=== PATIENT | female | born 1985 | race African-American/Black ===

== ENCOUNTER 2019-07-19 14:34 | Emergency (ER) | payer OTHER ==
[~2019-07-19] VITALS: Ht 162.6 cm; Wt 49.9 kg
[2019-07-19 15:05] LABS: URINE BILIRUBIN NEGATIVE (Negative); URINE BLOOD 3+ (Negative); URINE CLARITY CLOUDY; URINE COLOR RED; URINE GLUCOSE-RANDOM* NEGATIVE (Negative); URINE KETONES 1+ (Negative); URINE PROTEIN (DIPSTICK) 3+ (Negative)
[2019-07-19 15:08] LABS: URINE LEUKOCYTES-REFLEX 2+ (Negative); URINE NITRITE-REFLEX POSITIVE (Negative)
[2019-07-19 15:16] LABS: BACTERIA-REFLEX 1-9 Few /HPF (None Seen); CASTS None Seen /LPF (None Seen); CRYSTALS None Seen /LPF (None Seen); SQUAMOUS 0-3 Few /LPF (0-3); URINE RBC >20 Many /HPF (0-2); URINE WBC-REFLEX 0-5 Rare /HPF (0-5)
[2019-07-19] MEDS ORDERED: PHENAZOPYRIDIN200 M2 PO (15:39)
[2019-07-19] MEDS ORDERED: MACROBID 100 M100 MG PO (15:39)
[2019-07-19 15:43] VITALS: BP 121/74
== END 2019-07-19 15:43 | disposition home or self-care (01) ==
LOC: ER 14:34
PROVIDERS: Nurse Practitioner Family
DX: N39.0 Urinary tract infection, site not specified (principal); R31.9 Hematuria, unspecified